=== PATIENT | female | born 1945 | race Caucasian/White ===

== ENCOUNTER 2020-05-12 15:30 | Outpatient (CLI) | payer MEDICARE, SELFPAY ==
--- NOTE | 2020-05-16 11:38 | ONC FU_ITS ---
Dr. Paulson Patient Follow-Up Note Patient: Taya Domínguez Unit #: [id number]: 1945 Dicatated By: Redd Paulson M.D.Date of Visit:May 12, 2020 Onc Med Follow-up/Prog Note Chief Complaint: Breast cancer. History of Present Illness: This is a 74 year-old woman with multifocal grade 3 infiltrating ductal carcinoma of the left breast, clinical stage IIA (T2, N0, M0), ER positive/CA negative and HER-2/quinn positive, 3+ by IHC. She had palpated a left breast mass for about one year. On 01/14/2014 further imaging demonstrated a 2.6 cm mass on ultrasound and suspicious calcification on the mammogram, corresponding to a palpable mass at 12:00 position. There were also additional suspicious calcifications at the 2 -3:00 position for which stereotactic core biopsy was recommended. No clinically suspicious lymph nodes were identified. On 01/28/2014 the ultrasound-guided biopsy of left breast 12:00 lesion and stereotactic core needle biopsy of the left breast 3-4:00 lesion revealed grade 3 infiltrating ductal carcinoma. The prognostic markers of the lesion at 12 clock were of ER 9%, CA 0%, HER-2/quinn 3+ by IHC, Ki 67 index 68%. The prognostic markers of the lesion at 3-4:00 o'clock were of ER 0%, CA 0%, HER-2/quinn 3+ by IHC. Thus, her disease was clinical stage IIA (T2, N0). The patient was evaluated by Dr. Zhao, and referred here for discussion of preoperative chemotherapy given positive HER-2/quinn status. The patient was in a good state of health, except for the diagnosis of basal cell carcinoma in the right chest wall, status post 6 weeks of topical 5-FU therapy. She was first seen by Dr. Edwards on 02/13/2014. On 02/18/2014 sentinel lymph node biopsy showed 2 benign lymph nodes. Right-sided Port-A-Cath placed. MUGA EF 66%. She received 6 cycles of neoadjuvant TCH-P regimen 03/03/2014 -06/16/2014 as per TRYPHAENA study. She had multiple significant hematological toxicities, acute dehydration, diarrhea, transaminitis requiring dose adjustments. She had a very good response to the treatment, clinically no further breast mass palpable. She was evaluated by her surgeon, and recommended bilateral mastectomies with immediate reconstruction. Adjuvant hormonal therapy with anastrozole 1 mg daily began on 07/07/2014. She was taken to OR by Dr. Zhao on 08/07/2014. She underwent left simple mastectomy and right prophylactic mastectomy with immediate reconstruction. Her surgical pathology showed complete response, without residual malignancy identified. Thus, she was ypT0. She completed 52 weeks of Herceptin treatment on 02/23/2015. She developed asymptomatic incidental atrial fibrillation, established care with Dr. Laboy, and she began on anticoagulation with apixaban. Her Port-A-Cath was removed. Follow-up echocardiogram in February 2015 showed EF 64%. She continued adjuvant hormonal therapy with anastrozole. She is seen for a followup visit. She says she has been feeling great. She has good energy and activity tolerance. ECOG score is 0. Her appetite is good. She has not had fever. She sometimes has night sweating. She does not complain of shortness of breath, cough, or chest pain. She has continued apixaban for the atrial fibrillation. She has no GI/ complaints other than occasional acid reflux. She has just occasional joint pain. She does complain that her fingers get cold, but she has no focal neurologic symptoms. She does complain that she bruises easily on the apixaban. Medications: Anastrozole 1 Tablet (of 1 mg) Oral daily, Eliquis 1 Tablet (of 5 mg) Oral b.i.d., Lisinopril 1 (20 mg) Tablet Oral daily Allergies: No Known Allergies. Vital Signs: Performed on May 12, 2020 14:29 Height - 64.00 in Weight - 128 lbs (LOW) BSA - 1.62 sq.m BMI - 21.97 Temperature - 98.2 F (LOW) Pulse - 78 /min Respiration - 18 /min BP - 150/98 mm(hg) (HIGH) O2 Sat - 97 % Pain - 0 Physical Examination: Constitutional - She looks good generally, Eyes - Sclerae nonicteric. Conjunctivae clear, ENMT - No lesions noted in the oral cavity, Hematologic/Lymphatic - No cervical or clavicular adenopathy, Respiratory - Lungs are clear with good air movement bilaterally, Cardiovascular - Heart rhythm is irregular. There is no murmur, gallop or rub noted, Breasts - There are no lesions noted in the chest wall/reconstruction bilaterally. There is no axillary adenopathy noted, Abdomen - Soft. Liver and spleen are not enlarged. There is no abdominal mass or ascites noted and there is no inguinal adenopathy, Extremities - No edema. Pedal pulses are palpable bilaterally, Neurologic - No focal neurologic deficits noted. Lab/Imaging: Test performed on May 08, 2020 08:33 Glucose 94 mg/dL BUN 15 mg/dL Creatinine 0.95 mg/dL Cr Clearance (Est) 48.44 mL/min Sodium 143 mmol/L Potassium 4.5 mmol/L Chloride 107 mmol/L CO2 28 mmol/L Calcium 10.1 mg/dL Protein, Total 7.2 g/dL Albumin 4.1 g/dL Bilirubin, Total 0.4 mg/dL Alkaline Phosphatase 88 IU/L AST (SGOT) 16 IU/L ALT (SGPT) 11 IU/L WBC 7.8 10^9/L RBC 4.86 10^12/L HGB 16.4 g/dL HCT 48.0 % MCV 98.8 fl MCH 33.7 pg MCHC 34.2 g/dL RDW 13.4 % Platelet Count 183 10^9/L MPV 10.9 fL Neutrophils (Gran) 4.78 10^9/L Lymphocytes 2.09 10^9/L Monocytes 0.62 10^9/L Eosinophils 0.24 10^9/L Basophils 0.07 10^9/L Manual Lymphocytes 27 % Manual Monocytes 8 % Manual Eosinophils 3 % Manual Basophils 1 % Problem List: 1. Multifocal grade 3 infiltrating ductal carcinoma of the left breast, stage IIA (T2, N0, M0), ER positive/CA negative and HER-2/quinn positive, 3+ by IHC. Her initial procedures included ultrasound-guided needle biopsy of 2 lesions in the left breast on 01/28/2014 followed by left axillary sentinel lymph node biopsy on 02/18/2014. 2. She was given neoadjuvant chemotherapy with 6 cycles of TCH-P, completed in May 2014. 3. She underwent left simple mastectomy and right prophylactic mastectomy with immediate reconstruction on 08/07/2014. She had complete pathologic response to neoadjuvant therapy (ypT0). 4. She completed 52 weeks of Herceptin on 03/05/2015. 5. Adjuvant hormonal therapy with anastrozole 1 mg daily began on 07/07/2014. She had normal baseline bone density by DEXA scan. 6. She has chronic atrial fibrillation, on anticoagulation with apixaban. Problems Addressed with this Encounter and Plan: 1. Multifocal grade 3 infiltrating ductal carcinoma of the left breast, stage IIA (T2, N0, M0), ER positive/CA negative and HER-2/quinn positive, 3+ by IHC. She had complete pathologic response to neoadjuvant chemotherapy with 6 cycles of TCH-P, completed in May 2014. She underwent left simple mastectomy and right prophylactic mastectomy with immediate reconstruction on 08/07/2014. Adjuvant hormonal therapy with anastrozole 1 mg daily began on 07/07/2014. She has now completed over 5 years of adjuvant hormonal therapy. She is doing well clinically with no evidence of recurrence of the breast cancer. We discussed the option of continuing hormonal therapy for 10 years versus stopping after 5, and she prefers to stop. I feel that it is acceptable with node-negative disease. She will now be followed on observation/expectant management. I can just see her again as needed. 2. She has chronic atrial fibrillation. She has no other associated cardiac disease, though she does have a significant family history for coronary artery disease. She is wondering about the possibility of stopping the apixaban. I will discuss this with Dr. Laboy for his recommendations. Signed By: Redd Paulson M.D. <<Signature on File>>
== END 2020-05-12 15:31 | disposition home or self-care (01) ==
LOC: ONCMED 05-13 10:08
PROVIDERS: Family Provider Nurse Practitioner Family; PCP Family Medicine; Visit Provider Internal Medicine Medical Oncology
DX: C50.412 Malignant neoplasm of upper-outer quadrant of left female breast (principal); Z17.0 Estrogen receptor positive status [ER+]; N39.41 Urge incontinence; I48.11 Longstanding persistent atrial fibrillation; Z79.01 Long term (current) use of anticoagulants; Z79.811 Long term (current) use of aromatase inhibitors
CPT/HCPCS: 99214

== ENCOUNTER 2021-09-02 10:13 | Oncology outpatient (recurring) (ONCR) | payer MEDICARE, SELFPAY | END 2021-09-21 23:59 | disposition home or self-care (01) | PROVIDERS: Absent Provider Internal Medicine Medical Oncology; PCP Family Medicine; Visit Provider Internal Medicine Medical Oncology | DX: Z08 Encounter for follow-up examination after completed treatment for malignant neoplasm (principal); Z85.3 Personal history of malignant neoplasm of breast; D75.1 Secondary polycythemia; I63.9 Cerebral infarction, unspecified; I48.91 Unspecified atrial fibrillation; F17.210 Nicotine dependence, cigarettes, uncomplicated; Z79.01 Long term (current) use of anticoagulants; Z79.82 Long term (current) use of aspirin; Z79.899 Other long term (current) drug therapy | CPT/HCPCS: 81270; 82668; 85025; 99204; 99999 ==

== ENCOUNTER → 2022-02-14 13:37 | Outpatient (BNVA) | payer MEDICARE, SELFPAY | PROVIDERS: PCP Family Medicine; Visit Provider Surgery | DX: C44.91 Basal cell carcinoma of skin, unspecified (principal) | CPT/HCPCS: 99203 ==

== ENCOUNTER 2022-02-22 09:47 | Day surgery (SDC) | payer MEDICARE, SELFPAY ==
[2022-02-21 14:27] VITALS: BMI 22.3
[2022-02-22] VITALS (7 sets, daily range): BP systolic 114–158; BP diastolic 62–82; PULSE 70–83; RESP 14–18; TEMP 36.2–36.6; O2SAT 95–98
[2022-02-22] MEDS: sodium chloride 0.9% 1,000 ML 30 ML IV (10:35)
--- NOTE | 2022-02-22 10:42 | P.ANESASSM_ITS ---
Pre-Anesthetic Assessment Height/Weight: Height 1.63 m Weight 58.967 kg Temp Pulse Resp BP Pulse Ox O2 Del Method 97.8 F 77 18 158/74 95 02/22/22 10:05 02/22/22 10:05 02/22/22 10:05 02/22/22 10:05 02/22/22 10:05 02/22/22 10:06 Preop Diagnosis: Chest wall basal cell carcinoma Operation Date: 02/22/22 11:35 Proposed Procedures p wide loc incision of ches wall mass 80442,R22.2(Not Applicable) - Oscar Howard MD Familial anesthetic complications: None Was Beta Joe taken within 24 hours: N/A Was Clonidine taken within 24 hours: N/A Last intake: Intake Last Liquid Date 02/21/22 Last Liquid Time 19:00 Last Solid Date 02/21/22 Last Solid Time 19:00 Social Tobacco and No alcohol Exam alert, oriented x 3, clear to auscultation bilaterally and regular rate & rhythm Airway Mallampati: Class II Dentition: false Pulmonary None reported CV/HEM Atrial Fibrillation and Hypertension Neuropsych Cerebrovascular Accident (Residual R-sided parasthesias) Anesthetic Plan ASA status: 3 Anesthesia: MAC Risk of > 500 ml blood loss (7ml/kg in children): No Other Pertinent Information breast cancer Medications/Allergies Home Medications Medication Instructions Recorded Confirmed Last Taken Type apixaban 5 mg tablet (Eliquis) 5 mg PO BID 12/02/19 02/22/22 02/20/22 History atorvastatin 80 mg tablet tab PO 09/04/21 02/18/22 02/21/22 History amlodipine 5 mg tablet 5 mg PO DAILY 02/21/22 02/22/22 02/21/22 History lisinopril 30 mg tablet mg 02/21/22 02/21/22 History Allergies Allergy/AdvReac Type Severity Reaction Status Date / Time No Known Allergies Allergy Verified 02/21/22 14:24 Current Medications Generic Name Dose Route Start Last Admin Trade Name Freq PRN Reason Stop Dose Admin Sodium Chloride 1,000 mls @ 30 mls/hr 02/22/22 10:00 02/22/22 10:35 Sodium Chloride 0.9% IV 02/23/22 09:59 30 mls/hr .Q24H TEDDY Administration PFSH Anesthesia Medical History Basal cell carcinoma of skin History of atrial fibrillation Hx of [employer] spotted fever Hypertension Malignant neoplasm of upper-outer quadrant of left female breast (12/2014) Stroke 07/2021 Seen at [facility] [place] Urge incontinence Surgical History History of lymph node biopsy (01/19/14) left axillary sentinel lymph node biopsy Hx of bilateral mastectomy (08/07/14) bilateral mastectomy with immediate reconstruction Hx of dilation and curettage Hx of tubal ligation Family History Mother Dementia Sister Hyperlipidemia CAD (coronary artery disease) Brother CAD (coronary artery disease) Father CAD (coronary artery disease) Other Stroke Denies family history of Diabetes Clotting disorder Psychiatric illness Chronic kidney disease (CKD) Suicide Anesthesia complication Bleeding disorder Lung disease Cancer Hypertension Social History Smoking and tobacco status: never smoked Alcohol intake: current Alcohol intake frequency: holidays/special occasions only Data Anesthesia Cardiac Studies: No Data to Display
--- NOTE | 2022-02-22 11:11 | W.PM.OPSUD ---
Surgery/Procedure H&P Update DATE OF PROCEDURE: February 22, 2022 DATE H&P PERFORMED: 02/14/22 H&P UPDATE INFORMATION: I have reviewed H&P completed within last 30 days, I have examined patient prior to procedure and No changes to prior documentation PREOP DIAGNOSIS: Chest wall basal cell carcinoma PRIMARY INDICATION FOR PROCEDURE: The same PLANNED PROCEDURE: Operation Date: 02/22/22 11:35 Proposed Procedures p wide loc incision of ches wall mass 60474,R22.2(Not Applicable) - Oscar Howard MD
[2022-02-22 11:15] LABS: Blood Urea Nitrogen 23 mg/dL (8-23); Calcium 10.2 mg/dL (8.5-10.5); Carbon Dioxide 25 mmol/L (22-29); Chloride 103 mmol/L (98-107); Glucose 102 mg/dL (65-115); Osmolality Calculated 294 mOsm/kg (285-295); Sodium 140 mmol/L (136-145)
[2022-02-22] MEDS: ceFAZolin 1,000 MG in sodium chloride 0.9% (plus) 50 ML 100 MG IV (11:17)
[2022-02-22 11:22] LABS: Anion Gap 16.3 (5-19); Potassium 4.3 mmol/L (3.5-5.1)
[2022-02-22] MEDS: lidocaine 1% INJ 50 mL 7 ML INJECTION (11:33)
--- NOTE | 2022-02-22 11:55 | P.OP_ITS ---
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 Timeout was done verifying the patient's name/date of /planned procedure and destination after the procedure, all were in agreement. SCDs confirmed to be functioning, preoperative antibiotics administered per protocol, and beta alisha protocol was confirmed Prep and drape of the chest area was done under the usual sterile technique Local anesthesia 1% lidocaine was infiltrated site of the incision, elliptical skin incision was done including the presternal mass mass with safety margin 5 mm at least,incision was done all the way down to the subcutaneous tissues dissection was then carried on , the mass was oriented by 3-0 nylon sutures in the form of short superior and passed to the circulating nurse for permanent pathology. Undermining dissection for bilateral flaps were created in order to close the wound without applying tension ,Hemostasis was achieved using Bovie cautery, followed by irrigation with normal saline, 2-0 Vicryl followed by 4-0 Monocryl for subcuticular closure then surgical glue and dry dressing followed by sports bra Count was completed at the end of the procedure Patient was taken to the recovery room in stable condition I was present for the whole entire procedure
--- NOTE | 2022-02-22 13:14 | ANE.PACU2 ---
Inpatient post-anesthesia follow up: Airway intact: Yes Vital signs: Temperature 97.3 F Pulse Rate 83 Respiratory Rate 16 Blood Pressure 141/82 Pulse Oximetry 98 Oxygen Delivery Me thod Room Air Oxygen Flow Rate 6 Fraction of Inspir ed Oxygen Hydration adequate: Yes Nausea and vomiting: No Pain level: 1 Mental status: Baseline
== END 2022-02-22 12:56 | disposition home or self-care (01) ==
PROVIDERS: Anesthesiology; PCP Family Medicine; Visit Provider Surgery
PROC: (CPT 11602; principal; 2022-02-22 11:25)
DX: C44.519 Basal cell carcinoma of skin of other part of trunk (principal); I48.91 Unspecified atrial fibrillation; I10 Essential (primary) hypertension; I69.951 Hemiplegia and hemiparesis following unspecified cerebrovascular disease affecting right dominant side
CPT/HCPCS: 11602; 14000; 80048; 88309; J0690; J1100; J2405; J2704; J3010; J7030

== ENCOUNTER → 2022-03-03 14:48 | Outpatient (BNVA) | payer MEDICARE, SELFPAY | PROVIDERS: PCP Family Medicine; Visit Provider Surgery | DX: Z09 Encounter for follow-up examination after completed treatment for conditions other than malignant neoplasm (principal) | CPT/HCPCS: 99024 ==

== ENCOUNTER 2022-10-08 05:51 | Outpatient (CLI) | payer MEDICARE, SELFPAY ==
--- NOTE | 2022-10-08 | PETR_ITS ---
PROCEDURE INFORMATION: Exam: PET/CT Skull Base to Mid-thigh Exam date and time: 10/08/2022 11:44 AM Age: 77 years old Clinical indication: Condition or disease; Primary cancer: Breast cancer; Follow-up oncological assessment LABS AND CLINICAL REPORTS: Glucose: 101 mg/dl Treatment strategy for malignancy (PET staging): Restaging (PS) TECHNIQUE: Imaging protocol: Following at least four-hour fasting and following the injection of radiopharmaceutical, low dose CT images were obtained. Then, PET images were obtained. Attenuation corrected images were constructed using the CT scan. Fused images of PET and CT were reviewed. The standardized uptake values (SUV) reported below are maximum values within a region of interest, expressed in gm/ml. Exam includes orbital meatal line to mid-thigh. Radiopharmaceutical: 15.34 mCi F-18 FDG (Fluorodeoxyglucose), IV. Time of imaging post radiopharmaceutical administration: 44.6 minutes. Injection site: Right antecubital vein. COMPARISON: No relevant prior studies available. No prior breast imaging studies are available. FINDINGS: Brain: Visualized brain has normal physiologic uptake. Pharynx: No abnormal uptake. Larynx: No abnormal uptake. Lungs, pleura and trachea: Calcifications in the lungs, pulmonary pedrtio and mediastinum are consistent with remote granulomatous disease. The lungs are clear. Heart: Normal physiologic uptake. No cardiomegaly or pericardial effusion. Mediastinal space: No abnormal uptake. Liver: No abnormal uptake. Gallbladder and bile ducts: No abnormal uptake. Pancreas: No abnormal uptake. Spleen: No abnormal uptake. Adrenal glands: No abnormal uptake. Kidneys and ureters: Normal physiologic uptake. Stomach and bowel: No abnormal uptake. Intraperitoneal and retroperitoneal spaces: No significant peritoneal free fluid. No free peritoneal air. Urinary bladder: Urinary bladder is normal without wall thickening, mass or stone. Reproductive: Postmenopausal uterine and ovarian atrophy is appropriate for 77 years of age. Calcified uterine fibroids measure up to 4.0 cm. Vasculature: There is severe calcific atherosclerosis of the abdominal aorta and iliac arteries. There is no aortic aneurysm. Lymph nodes: No abnormal uptake. No lymphadenopathy in the head, neck, chest, abdomen, pelvis or extremities. Bones/joints: No metabolically active areas. Severe degenerative disc narrowing with endplate sclerosis at T12-L1 and L1-L2 is not FDG avid. 30 degree dextroscoliosis between T12 and L3. Soft tissues: Status post bilateral mastectomies and breast reconstructions. [facility] SUB[facility] [id number] IMPRESSION: 1. No evidence of FDG avid malignant neoplasm. 2. Status post bilateral mastectomies and breast reconstructions. 3. No FDG avid lymph nodes.
== END 2022-10-08 05:52 | disposition home or self-care (01) ==
LOC: RAD 10-10 05:51
PROVIDERS: PCP Family Medicine; Visit Provider Family Medicine
DX: C50.112 Malignant neoplasm of central portion of left female breast (principal); Z90.13 Acquired absence of bilateral breasts and nipples; R61 Generalized hyperhidrosis; R63.4 Abnormal weight loss
CPT/HCPCS: 78815; A9552

== ENCOUNTER 2024-02-19 22:13 | Observation (INO) | payer MEDICARE, SELFPAY ==
[2024-02-19 22:33] VITALS: BP 156/75; PULSE 71; RESP 20; TEMP 36.4; O2SAT 99; BMI 22.3
--- NOTE | 2024-02-19 23:33 | PM.HP ---
Providers/Chief Complaint Admitting Physician: Francis Myers MD Primary Care Provider: Tony Stephens Chief Complaint: Previous Stroke\MRI History of Present Illness Taya Domínguez is a 78 year old female Transferred from [facility] in [facility]. Patient was seen by Dr. Jc and he had consulted with teleneurology. The patient was noted to have stroke symptoms with right arm and foot tingling and also repeating herself verbally. She was disoriented and demonstrated mild dementia which is consistent with her baseline. CT of the brain showed atrophy Dr. Jc states he got a NIH score of 0 but the neurologist got an NIH score of 1 Neurologist recommended that the patient have MRI and that apixaban be held until that could be completed. Also recommended for permissive hypertension and no tPA. CT scan was negative of the brain for bleed. Blood work normal no elevated white count. Hemoglobin was 18.3 BNP 1000 troponin 18 with normal less than 10 and D-dimer at 0.92 with normal less than 0.05 Patient was being evaluated by nurse when I arrived and she stated in a loud voice will come have a seat sorry I cannot offer you a drink. Patient was talkative but as I spoke with her it became apparent that she was not very oriented. 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 She tells me that her is a technical testing engineer who did surgery. She tells me that she 3 weeks ago had a physical so that she could play racquetball in a league. She states her 8-year-old pitbull mix dog has been having trouble with his legs which stopped working intermittently and prevent him from wanting to jovanny the ball. The story she tells seemingly out of order and context but do seem to be factual. Additionally the patient tells me that she worked at [employer] but needed help with the name of hospitals in [place]. She states that she worked there 1971 but later states that she and her moved to [place] in [facility] for 20 years where he worked as a vet starting 1967. Review of Systems Narrative: General denies fevers or chills Cardiovascular no chest pain or palpitations Respiratory no coughing or wheezing GI no nausea vomiting no dysuria hematuria Neuro she reports some tingling in her right hand and foot but not on the left side She states she is more confused than usual Medications/Allergies Home Medications Medication Instructions Recorded Confirmed Last Taken Type apixaban 5 mg tablet (Eliquis) 5 mg PO BID 12/02/19 03/05/22 02/20/22 History atorvastatin 80 mg tablet tab PO 09/04/21 03/05/22 02/21/22 History amlodipine 5 mg tablet 5 mg PO DAILY 02/21/22 03/05/22 02/21/22 History lisinopril 30 mg tablet mg 02/21/22 03/05/22 02/21/22 History Allergies Allergy/AdvReac Type Severity Reaction Status Date / Time No Known Allergies Allergy Verified 03/05/22 09:58 PFSH Acute PFSH: Medical History Basal cell carcinoma of skin History of atrial fibrillation Hx of [place] spotted fever Hypertension Malignant neoplasm of upper-outer quadrant of left female breast (12/2014) Stroke 07/2021 Seen at [facility] [place] Urge incontinence Surgical History History of lymph node biopsy (01/19/14) left axillary sentinel lymph node biopsy Hx of bilateral mastectomy (08/07/14) bilateral mastectomy with immediate reconstruction Hx of dilation and curettage Hx of tubal ligation Family History Mother Dementia Sister Hyperlipidemia CAD (coronary artery disease) Brother CAD (coronary artery disease) Father CAD (coronary artery disease) Other Stroke Denies family history of Diabetes Clotting disorder Psychiatric illness Chronic kidney disease (CKD) Suicide Anesthesia complication Bleeding disorder Lung disease Cancer Hypertension Social History Smoking and tobacco/nicotine status: never used tobacco/nicotine Alcohol intake: current Alcohol intake frequency: holidays/special occasions only Vitals/I&O/Wt Last Vital Signs Temp 97.5 F L 02/19/24 22:33 Pulse 71 02/19/24 22:33 Resp 20 H 02/19/24 22:33 BP 156/75 02/19/24 22:33 Pulse Ox 99 02/19/24 22:33 O2 Del Method Room Air 02/19/24 22:33 Weight last 48 hrs Weight 58.967 kg Physical Exam Narrative: General well-developed well-nourished female in no acute cardiopulmonary distress Neuro she is oriented to person and hospital but thought that she was in [place]. She told me the month was July and that it is Monday but was interviewed on Monday late evening. Told me the date was 2018 or 2019. After taking additional history I came back to the disorientation and she told me it was 2022 and guessed the date to be November or December then January She moves all extremities symmetrically. She reports mild numbness in the right ankle but not in the right hand. Motor strength is 5/5 bilateral biceps triceps ankle extension and flexion. Cranial nerves II through XII are grossly intact no nystagmus smile is symmetric no tongue deviation Cardiovascular regular rate and rhythm occasional irregular beat Lungs clear to auscultation bilaterally Abdomen positive bowel sounds soft nontender Calves no tenderness cords asymmetry or pretibial edema Mood and affect are bright gregarious cooperative Skin is warm and dry A&P Assessment and plan (1) Stroke: Patient is admitted to observation and will have PT OT and speech therapy evaluation. She is okayed for regular diet as she appears to be with minimal speech deficit. The patient will be on telemetry with apixaban held pending MRI of the brain. Anticipate that she will go home tomorrow with her I am told from transferring physician that the patient's dementia is baseline (2) History of atrial fibrillation: Patient was sinus rhythm occasional ectopy apixaban held for now (3) Hypertension: Will allow permissive hypertension and so her lisinopril and amlodipine are held. Atorvastatin will be continued. Blood pressure here 156/75 without intervention. She has room air saturation 99% Attestations Medical Necessity Statement*: Patient is transferred from outside hospital based on recommendation from neurology to be monitored on telemetry with apixaban held until MRI of the brain can be performed. Patient is not a candidate for tPA Time Spent in Patient Care: 75 minutes spent in evaluation coronation of care for this patient today Coding Level of Care Code 20897 Diagnoses Stroke I63.9 History of atrial fibrillation Z86.79 Hypertension I10 Time Spent (min) 75
[2024-02-19] MEDS: atorvastatin 40 mg Tablet 80 MG PO (23:48)
[2024-02-20] VITALS (10 sets, daily range): BP systolic 124–192; BP diastolic 66–84; PULSE 52–69; RESP 16–20; TEMP 36.4–36.8; O2SAT 95–99
[2024-02-20 06:49] LABS: Chol HDL Ratio 4.26 mg/dL (0.0-4.40); Cholesterol 200 mg/dL (0-200); HDL Cholesterol 47 mg/dL (60-100); LDL Cholesterol Calculated 132 mg/dL (50-129); LDL HDL Ratio 2.81 RATIO (0.00-3.22); Triglycerides 106 mg/dL (0-150)
--- NOTE | 2024-02-20 09:00 | USCV_ITS ---
Taya Domínguez Age: 78 Gender: F : 1945 Exam Date: 02/20/2024 14:49 Ordering Phys: Chalino Moeller MD Technologist: Exam Location: [facility] – [place] Indication: tia BP: 124 / 72 HR: 247 Rhythm: Sinus Technical Quality: Adequate MEASUREMENTS (Male / Female) Normal Values 2D ECHO LV Diastolic Diameter PLAX 4.0 cm 4.2 - 5.9 / 3.9 - 5.3 cm IVS Diastolic Thickness 1.3 cm 0.6 - 1.0 / 0.6 - 0.9 cm IVS Systolic Thickness 1.7 cm LVPW Diastolic Thickness 1.3 cm 0.6 - 1.0 / 0.6 - 0.9 cm LVPW Systolic Thickness 1.8 cm LVOT Diameter 2.0 cm LV Ejection Fraction 2D Teich 69.5 % LV Ejection Fraction MOD 4C 68.0 % LV Ejection Fraction MOD 2C 58.6 % LV Ejection Fraction 2C AL 60.9 % LA Diameter 4.3 cm RA Systolic Volume 4C AL 29.9 ml RA Systolic Volume 4C MOD 30.9 ml LA Sys Volume AL 123.3 cm cubed LA Sys Volume Index AL 75.4 cm cubed/m squared Aorta at Sinotubular Diameter 2.1 cm M-MODE LA Ao Ratio MM 1.8 AV Cusp Separation MM 1.7 cm DOPPLER AV Peak Velocity 151.0 cm/s LVOT Peak Velocity 34.0 cm/s AV Area Cont Eq vti 0.8 cm squared AV Area Cont Eq pk 0.7 cm squared MV Peak Velocity 99.0 cm/s MV Area PHT 2.7 cm squared Mitral E to A Ratio 4.0 TR Peak Velocity 248.0 cm/s TR Peak Gradient 24.6 mmHg TV Peak E Velocity 93.0 cm/s Right Atrial Pressure 3.0 mmHg Pulmonary Artery Systolic Pressu 27.6 mmHg PV Peak Velocity 71.0 cm/s FINDINGS Left Ventricle Mild left ventricular hypertrophy. Normal systolic function and wall thickness, with no regional wall motion abnormalities. Estimated LVEF is normal at 65%. Right Ventricle Normal right ventricular size and systolic function. Right Atrium Normal right atrial size. Left Atrium Moderately increased left atrial size. Mitral Valve Thickened mitral valve. No mitral valve stenosis. Trace mitral valve regurgitation. Aortic Valve Thickened aortic valve. No aortic valve stenosis. No aortic valve regurgitation. Tricuspid Valve Structurally normal tricuspid valve. Trace tricuspid valve regurgitation. Normal pulmonary artery pressure (29 mmHg). Pulmonic Valve Structurally normal pulmonic valve. Trace pulmonary valve regurgitation. Pericardium No pericardial effusion. Aorta Normal size aortic root and proximal ascending aorta. IVC Normal inferior vena cava. CONCLUSIONS Atrial fibrillation during the study. Mild left ventricle hypertrophy. Normal LV systolic function. Normal LVEF 65%. Moderately dilated left atrium. Trace mitral regurgitation. No significant valvular abnormality noted. Normal right heart and pulmonary pressures. Hemal Shepard MD (Electronically Signed) Final Date: 20 February 2024 16:12 S
--- NOTE | 2024-02-20 09:00 | USCV_ITS ---
Taya Domínguez Age: 78 Gender: F : 1945 Exam Date: 02/20/2024 15:05 Ordering Phys: Chalino Moeller MD Technologist: Exam Location: [place] Indication: tia Risk Factors: Previous Vascular Surgery: Right Brachial BP: / Left Brachial BP: / Right Left Velocity (cm/s) Spectral Plaque Velocity (cm/s) Spectral Plaque Syst/Diast Broadening Syst/Diast Broadening 93.20/ 15.40 Prox CCA 64.40 / 12.50 90.40/ 16.70 Mid CCA 46.70 / 12.50 60.40/ 14.00 Distal CCA 42.90 / 12.50 89.70/ 22.60 Prox ICA 80.00 / 19.30 73.20/ 18.80 Mid ICA 80.00 / 23.60 45.40/ 16.30 Distal ICA 80.00 / 17.10 74.10 ECA 78.00 1.50 ICA/CCA 1.90 Antegrade Vertebral Antegrade 59.30/ 12.50 cm/s 29.10/ 0.00 cm/s Bi Subclavian Bi 112.4 165.3 0 0 FINDINGS Comparison: none available. No significant elevation of systolic or diastolic velocities. Waveforms are normal. Moderate calcified plaque in the bifurcations. Antegrade vertebral arteries. CONCLUSIONS Bilateral ICA stenosis less than 50%. Moderate carotid atherosclerosis. Dr. Lakia Dotson DO (Electronically Signed) Final Date: 20 February 2024 16:07 S
--- NOTE | 2024-02-20 09:30 | MR_ITS ---
WS: [id number] MRI HEAD WITH CONTRAST TECHNIQUE: Sagittal T1, T2 axial, T2 axial FLAIR, axial susceptibility weighted imaging, axial diffus ion weighted images, and coronal T2 images were obtained. Pre and post-T1 axial and post T1 coronal i mages. ADC and FSPGR images. CLINICAL INFORMATION: Stroke COMPARISON: None. FINDINGS: Some images limited by patient motion. Fast imaging performed due to motion. Tiny focus of partially restricted diffusion in the RIGHT parietal lobe compatible with acute to suba cute ischemia. This measures approximately 5 mm. Additional tiny focus of partially restricted diffus ion in the LEFT posterior frontal lobe with an additional focus along the RIGHT insula. Consider embo lic etiologies. Additional suspected tiny focus along the LEFT operculum. No evidence of enhancing intracranial metastatic disease. Moderate small vessel changes with moderat e parenchymal volume loss. Small vessel changes in the nii. Normal vascular flow-voids at the skull base. No extra-axial fluid collections. Paranasal sinuses and mastoid air cells are well aerated. Normal posterior nasopharynx. Prominent perivascular spaces in the basal ganglia. Moderate symmetric atrophy temporal lobes and hippocampal formations. Chronic hemosiderin in the LEFT basal ganglia. Ch ronic lacunar infarcts in the LEFT caudate and LEFT lateral basal ganglia. MR/MR head wo/w con [id number] IMPRESSION: 1. No evidence of enhancing intracranial metastatic disease. 2. 3 or 4 tiny foci of partially restricted diffusion compatible with acute to subacute ischemia in multiple vascular territories. Consider embolic etiologie s. 3. Moderate small vessel changes with moderate parenchymal volume loss. 4. Chronic lacunar infarcts in the LEFT lateral basal ganglia with hemosiderin . 5. Small vessel changes in the nii. Notified Dr. Sunni VEE at 02/20/2024 11:13 AM.
--- NOTE | 2024-02-20 09:30 | PC.CHAP ---
Pastoral Care Encounter/Spiritual Assessment Type of Contact [] Declined community center director visit [] Patient/Family/Request visit [] Outpatient visit [] Follow-up visit [] Physician referral [] Code/Alert [x] Routine visit [] Staff referral [] Actively dying [] Patient sleeping [] Family support [] [] Out of room [] Palliative care [] [] Receiving care in room [] Pre-surgical visit [] Trauma [] Long length of stay [] ICU visit [] Other: Relational/Emotional Strength [x] Patient feels connected with others/family/visitors/staff [] Distress [] Loneliness/isolation [] Abandonment Spirituality of Patient [x] Person of Farheen [] Attends Yazdanism of their Farheen [x] Believes in Prayer [] Reads Bible or Mu-Ism materials [] There are Spiritual issues to be addressed 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 Interventions [x] Prayer [x] Active listening [] Non-anxious presence [x] Spiritual/emotional support [] Crisis/trauma care [] Spiritual counseling [] Bereavement support [] Provided bereavement packet [] Provided Bible/devotional materials [] Provided toy/stuffed animal, coloring book to patient or family member [] Provided Communion [] Anointing/[place] [] Salvation [x] Completed spiritual assessment [] Other: Impact on Illness or Injury [] Angry [] Fearful [] Anxious [] Often cries [] Exhaustion [] Unable to work [] Unable to attend religious [] Unable to walk/stand [] Unable to read [] Unable to drive [] Unable to eat/drink [] Unable to sleep [] Unable to be with family [] Patient intubated [] Other: Summary Time spent with patient 5 min
[2024-02-20 10:01] LABS: Basophils # 0.1 10^3/uL (0.0-0.1); Eosinophils # 0.2 10^3/uL (0.0-0.8); Eosinophils % 2.2 %; Hematocrit 46.3 % (36-47); Lymphocytes # 2.1 10^3/uL (0.8-4.8); Lymphocytes % 27.1 %; Mean Corpuscular HGB Conc 33.7 g/dL (30-55); Mean Corpuscular Hemoglobin 33.3 pg (27-33); Mean Corpuscular Volume 98.7 fl (85-98); Mean Platelet Volume 11.7 fL (7.4-10.4); Monocytes # 0.6 10^3/uL (0.2-0.9); Monocytes % 7.6 %; Neutrophils # 4.75 10^3/uL (1.8-7.7); Neutrophils % 61.8 %; Nucleated Red Blood Cells % 0 %; Platelet Count 195 10^3/cmm (157-399); Red Blood Count 4.69 10^6/uL (3.85-5.65); Red Cell Distribution Width 13.8 % (12.1-15.1); White Blood Count 7.68 10^3/uL (3.29-11.43)
[2024-02-20 10:37] LABS: Blood Urea Nitrogen 24 mg/dL (8-23); Calcium 9.1 mg/dL (8.5-10.5); Carbon Dioxide 24 mmol/L (22-29); Chloride 107 mmol/L (98-107); Creatinine Clr Calc Pharmacy 40.8805; Glucose 96 mg/dL (65-115); Osmolality Calculated 304 mOsm/kg (285-295); Sodium 145 mmol/L (136-145); Thyroid Stimulating Hormone 1.98 uIU/mL (0.27-4.20)
[2024-02-20] MEDS: gadobenate dimeglumine 20 mL vial 12 ML IV (10:45)
--- NOTE | 2024-02-20 15:07 | P.PN_ITS ---
Subjective 2 Subjective: Patient was seen this morning, she is alert oriented x 3, following all commands no focal neurologic deficits, she does report that she had some right facial numbness, right upper extremity numbness which was transient, no word finding difficulty, no slurring of her words, no trouble walking she tells me, she tells me that she is compliant with her Eliquis therapy, does report a family history of CAD in her father, Vitals/I&O/Wt Last Vital Signs Temp 98.2 F 02/20/24 11:51 Pulse 65 02/20/24 11:51 Resp 18 02/20/24 11:51 BP 178/72 02/20/24 11:51 Pulse Ox 99 02/20/24 11:51 O2 Del Method Room Air 02/20/24 11:51 02/20/24 02/20/24 02/20/24 06:59 14:59 22:59 Intake Total 420 / 420 Balance 420 / 420 Weight last 48 hrs Weight 45.677 kg Weight 58.967 kg Physical Exam 2 Const: COMMON NORMALS: no acute distress ORIENTATION/CONSCIOUSNESS: Yes awake and Yes oriented to person; not oriented to place and not oriented to time Resp: COMMON NORMALS: normal respiratory effort, No retractions, No use of accessory muscles and clear to auscultation bilaterally AUSCULTATION: clear to auscultation bilaterally Cardio: COMMON NORMALS: regular rate, regular rhythm, S1 normal heart sound present and S2 normal heart sound present RATE: regular rate RHYTHM: r egular rhythm HEART SOUNDS: S1 normal heart sound present and S2 normal heart sound present GI: COMMON NORMALS: Normal to inspection, nondistended, normoactive bowel sounds present and non-tender Extremity: COMMON NORMALS: no calf tenderness and no pedal edema Neuro: COMMON NORMALS: CN's II-XII intact bilaterally, moves all extremities and no focal motor deficits SENSORIUM/ORIENTATION: Yes oriented to person, No oriented to place and No oriented to time Psych: COMMON NORMALS: mental status grossly normal Data 02/20/24 04:59 02/20/24 04:59 A&P Assessment and plan (1) Stroke: (2) History of atrial fibrillation: (3) Hypertension: Plan Acute CVA ? Concerns for embolic CVA ? NIH stroke scale 0/1 at outside facility ? Currently NIH stroke scale 0 ? Out of the window for tPA, and not a candidate given her Eliquis therapy ? Brain MRI MR/MR head wo/w con [id number] IMPRESSION: 1. No evidence of enhancing intracranial metastatic disease. 2. 3 or 4 tiny foci of partially restricted diffusion compatible with acute to subacute ischemia in multiple vascular territories. Consider embolic etiologies. 3. Moderate small vessel changes with moderate parenchymal volume loss. 4. Chronic lacunar infarcts in the LEFT lateral basal ganglia with hemosiderin. 5. Small vessel changes in the nii. ? Spoke to neurology, recommend outpatient follow-up with neurology, event monitor, resume anticoagulant therapy in 48 hours -I reviewed patient's records she has had acute CVA 08/11/2021, MRI showing restricted diffusion in the dorsal, medial left nii, this stroke happened while she was also while she was on Eliquis therapy, also had a cardiac echo which was negative for [id number] shunting ? Patient follows up with Dr. Paulson, there was concerns for polycythemia, she has had a hypercoagulable workup including factor V Leiden, JAK2, anticardiolipin antibody which was negative -Does have a history of dementia, on examination is alert to person, to place, not to time she understands that she is forgetful, no troubles with word recall, no slurring of her words, no significant receptive aphasia, does have slowing of word retrieval Plan ? Monitor closely ? Neurochecks ? Aspiration precautions ? N/A stroke scale ? PT OT ? Speech therapy eval ? Continue statin ? Carotid ultrasound -Cardiac echo -Permissive hypertension ? Resume Eliquis therapy 48 hours after stroke # SCDs for DVT prophylaxis Spoke to patient, spoke to nursing staff, spoke to neurology, looked at prior records Attestations 2 Medical Necessity Statement*: Patient requires hospitalization for acute CVA, embolic CVA inpatient, greater than 2 midnights Diagnoses Stroke I63.9 History of atrial fibrillation Z86.79 Hypertension I10
[2024-02-20] MEDS: aspirin 81 mg EC Tablet PO (15:38)
--- NOTE | 2024-02-20 20:24 | PC.NURSE ---
Patient states it is 2022 and that it is February. Patient knows she is in the hospital, but doesn't know which hospital. Patient is able to tell me the year she was born, but is not able to tell me her age.
[2024-02-20] MEDS: atorvastatin 40 mg Tablet 80 MG PO (20:33)
[2024-02-21] VITALS: BP 130/59; PULSE 64; RESP 17; TEMP 36.3; O2SAT 97
[2024-02-21 04:00] VITALS: BP 174/75; PULSE 64; RESP 16; TEMP 36.4; O2SAT 97
[2024-02-21 07:59] VITALS: BP 180/78; PULSE 64; RESP 14; TEMP 36.4; O2SAT 95
[2024-02-21] MEDS: aspirin 81 mg EC Tablet PO (08:33)
--- NOTE | 2024-02-21 11:20 | P.DS_ITS ---
Discharge Providers Date of Admission: 02/19/24 22:13 Date of Discharge: February 21, 2024 Attending Provider at Admission: Francis Myers MD Attending Provider at Discharge: Chalino Moeller MD Primary Care Provider: Tony Stephens Diagnoses at Discharge Discharge Diagnosis (1) Stroke: Status: Acute Permanent problem details: 07/2021 Seen at [facility] (2) History of atrial fibrillation: Status: Acute (3) Hypertension: Status: Acute Reason for Visit Reason for Visit: Previous Stroke\MRI Hospital Course Hospital Course This is a 78-year-old female with a past medical history of atrial fibrillation on Eliquis therapy, prior history of CVA, history of dementia, who presents to [facility] due to disorientation, right-sided facial numbness right upper and lower extremity numbness, she was seen at [facility] concerns for acute CVA, ER follow-up provider spoke to teleneurology, NIH stroke scale was 0-1, CT head was negative for acute bleed, patient was on Eliquis, was not a candidate for tPA, patient was transferred to [facility] for further stroke evaluation Patient was admitted to [facility] for acute CVA, she is alert oriented x to person, to place, not to time she follows all commands, no focal neurologic deficits, she does have right facial numbness, right upper and lower extremity numbness which is transient, no word finding difficulty no slurring words, she tells me that she is compliant with her Eliquis therapy Acute CVA ? Concerns for embolic CVA ? NIH stroke scale 0/1 at outside facility ? Currently NIH stroke scale 0 ? Out of the window for tPA, and not a candidate given her Eliquis therapy ? Brain MRI MR/MR head wo/w con [id number] IMPRESSION: 1. No evidence of enhancing intracranial metastatic disease. 2. 3 or 4 tiny foci of partially restricted diffusion compatible with acute to subacute ischemia in multiple vascular territories. Consider embolic etiologies. 3. Moderate small vessel changes with moderate parenchymal volume loss. 4. Chronic lacunar infarcts in the LEFT lateral basal ganglia with hemosiderin. 5. Small vessel changes in the nii. ? Spoke to neurology, recommend outpatient follow-up with neurology, event monitor, resume anticoagulant therapy in 48 hours -I reviewed patient's records she has had acute CVA 08/11/2021, MRI showing restricted diffusion in the dorsal, medial left nii, this stroke happened while she was also while she was on Eliquis therapy, also had a cardiac echo which was negative for [id number] shunting ? Patient follows up with Dr. Paulson, there was concerns for polycythemia, she has had a hypercoagulable workup including factor V Leiden, JAK2, anticardiolipin antibody which was negative -Does have a history of dementia, on examination is alert to person, to place, not to time she understands that she is forgetful, no troubles with word recall, no slurring of her words, no significant receptive aphasia, does have slowing of word retrieval -The question is this just a failure of anticoagulation or an issue with compliance I spoke to patient's , as patient has dementia, he is tells me that he arranges all her medications and takes the medication as prescribed -I have discontinued Eliquis 5 mg twice daily I have discontinued this, and I discussed this with patient and her , and patient's neighbor who is a nurse -Will have her take Xarelto 20 mg at bedtime, as there is at ease of administ ration it is once daily, -I discussed the risk and benefits of adding aspirin to her regimen as above, discussed risk and benefits, shared decision making, patient and voiced understanding, all questions answered, agreed to proceed, she was given aspirin as inpatient tolerated well -Discharged on statin therapy -For her atrial fibrillation, during her echocardiogram she had atrial fibrilla tion event, but during my multiple evaluations she has remained in sinus rhythm, we will discharge her on metoprolol 25 mg p.o. daily starting tomorrow -Start Norvasc 10 mg daily starting February 23, 2024 ? Start lisinopril 10 mg twice daily starting February 23 ? On discharge I have gone over patient's discharge instructions with patient's in detail ? She is to discard all her home medications as I am worried that she might accidentally take her Eliquis in addition to Xarelto ? As adamant with the to completely discard old their home medications, and start all the medications that I have given to them here in the hospital and sent to [facility] [place] pharmacy ? Follow-up with neurology in 2 weeks next ?follow-up with cardiology in 1 to 2 weeks next ?event monitor ordered In terms of patient's dementia, she does have moderate dementia, she does not know the date at times, she can carry out full conversations, she can follow all commands but does have short-term memory loss, she really wants to be discharged home, does not want to go to a long-term facility, although I would strongly recommend this. Nonetheless patient should follow-up with primary care, follow-up with specialist. If patient's dementia does progress, I think she would better be served at a long-term facility. Her who is a project management engineer does take care of her, helps her with activities of daily living, but he is also frail, Physical Exam Const: COMMON NORMALS: no acute distress and patient oriented x3 ORIENTATION/CONSCIOUSNESS: Yes awake, Yes oriented to person and Yes oriented to place; not oriented to time Resp: COMMON NORMALS: normal respiratory effort, No retractions, No use of accessory muscles and clear to auscultation bilaterally AUSCULTATION: clear to auscultation bilaterally Cardio: COMMON NORMALS: regular rate, regular rhythm, S1 normal heart sound present and S2 normal heart sound present RATE: regular rate RHYTHM: regular rhythm HEART SOUNDS: S1 normal heart sound present and S2 normal heart sound present GI: COMMON NORMALS: Normal to inspection, nondistended, normoactive bowel sounds present and non-tender Extremity: COMMON NORMALS: no pedal edema Neuro: COMMON NORMALS: patient oriented x3, CN's II-XII intact bilaterally, moves all extremities and no focal motor deficits SENSORIUM/ORIENTATION: Yes oriented to person, Yes oriented to place and No oriented to time Discharge Data Studies Completed and Pending Completed Studies During Hospitalization Category Date Time Status MR head wo/w con [id number] Urgent MRI 02/20/24 09:30 Completed CV carotid duplex BI* [id number] Routine Ultrasound 02/20/24 09:00 Completed CV. echo complete* [id number] Routine Ultrasound 02/20/24 09:00 Completed Pending at discharge Category Date Time Status Lipoprotein (a) Routine Lab 02/20/24 04:59 Received Radiology Impressions Head MRI 02/20/24 09:30 IMPRESSION: 1. No evidence of enhancing intracranial metastatic disease. 2. 3 or 4 tiny foci of partially restricted diffusion compatible with acute to subacute ischemia in multiple vascular territories. Consider embolic etiologies. 3. Moderate small vessel changes with moderate parenchymal volume loss. 4. Chronic lacunar infarcts in the LEFT lateral basal ganglia with hemosiderin. 5. Small vessel changes in the nii. Notified Dr. Sunni VEE at 02/20/2024 11:13 AM. Laboratory Results WBC 7.68 10^3/uL (3.29-11.43) 02/20/24 04:59 RBC 4.69 10^6/uL (3.85-5.65) 02/20/24 04:59 Hgb 15.60 g/dL (11.27-16.99) 02/20/24 04:59 Hct 46.3 % (36-47) 02/20/24 04:59 MCV 98.7 fl (85-98) H 02/20/24 04:59 MCH 33.3 pg (27-33) H 02/20/24 04:59 MCHC 33.7 g/dL (30-55) 02/20/24 04:59 RDW 13.8 % (12.1-15.1) 02/20/24 04:59 Plt Count 195 10^3/cmm (157-399) 02/20/24 04:59 MPV 11.7 fL (7.4-10.4) H 02/20/24 04:59 Neut % (Auto) 61.8 % 02/20/24 04:59 Lymph % (Auto) 27.1 % 02/20/24 04:59 [place] % (Auto) 7.6 % 02/20/24 04:59 Eos % (Auto) 2.2 % 02/20/24 04:59 Baso % (Auto) 1.0 % 02/20/24 04:59 Neut # (Auto) 4.75 10^3/uL (1.8-7.7) 02/20/24 04:59 Lymph # (Auto) 2.1 10^3/uL (0.8-4.8) 02/20/24 04:59 [place] # (Auto) 0.6 10^3/uL (0.2-0.9) 02/20/24 04:59 Eos # (Auto) 0.2 10^3/uL (0.0-0.8) 02/20/24 04:59 Baso # (Auto) 0.1 10^3/uL (0.0-0.1) 02/20/24 04:59 Nucleated RBC % (auto) 0 % 02/20/24 04:59 Nucleated RBCs # 0.0 /100WBC 02/20/24 04:59 Sodium 145 mmol/L (136-145) 02/20/24 04:59 Potassium 4.0 mmol/L (3.5-5.1) 02/20/24 04:59 Chloride 107 mmol/L (98-107) 02/20/24 04:59 Carbon Dioxide 24 mmol/L (22-29) 02/20/24 04:59 Anion Gap 18.0 (5-19) 02/20/24 04:59 BUN 24 mg/dL (8-23) H 02/20/24 04:59 Creatinine 0.9 mg/dL (0.5-0.9) 02/20/24 04:59 GFR Calculation Not Reportable 02/20/24 04:59 Glucose 96 mg/dL (65-115) 02/20/24 04:59 Calculated Osmolality 304 mOsm/kg (285-295) H 02/20/24 04:59 Calcium 9.1 mg/dL (8.5-10.5) 02/20/24 04:59 C-React Prot High Sens 0.680 mg/dL (0.0-0.3) H 02/20/24 04:59 Triglycerides 106 mg/dL (0-150) 02/20/24 04:59 Cholesterol 200 mg/dL (0-200) 02/20/24 04:59 LDL Cholesterol, Calc 132 mg/dL (50-129) H 02/20/24 04:59 HDL Cholesterol 47 mg/dL (60-100) L 02/20/24 04:59 LDL/HDL Ratio 2.81 RATIO (0.00-3.22) 02/20/24 04:59 Cholesterol/HDL Ratio 4.26 mg/dL (0.0-4.40) 02/20/24 04:59 TSH 1.98 uIU/mL (0.27-4.20) 02/20/24 04:59 Vitals Last Vital Signs Temp 97.6 F 02/21/24 07:59 Pulse 64 02/21/24 07:59 Resp 14 02/21/24 07:59 BP 180/78 02/21/24 07:59 Pulse Ox 95 02/21/24 07:59 O2 Del Method Room Air 02/21/24 07:59 Discharge Plan Discharge Patient Disposition: Home Condition: Stable Prescriptions: New atorvastatin 40 mg Tablet 80 mg PO BEDTIME 30 Days Qty: 30 0RF aspirin 81 mg Tablet,Delayed Release (Dr/Ec) 81 mg PO DAILY 30 Days Qty: 30 0RF Xarelto 20 mg tablet 20 mg PO QPM 30 Days Qty: 30 0RF Rx Instructions: sart tonight at 9pm, must administer with evening (at 9pm) meal metoprolol succinate [Toprol XL] 25 mg tablet extended release 24 hr 25 mg PO DAILY 30 Days Qty: 30 0RF Rx Instructions: start 02/22/2024 at 8 am amlodipine 5 mg tablet 5 mg PO DAILY 30 Days Qty: 30 0RF Rx Instructions: start february 23 2024 lisinopril 10 mg tablet 10 mg PO BID 30 Days Qty: 60 0RF Rx Instructions: start february 24 2024 omeprazole 20 mg capsule,delayed release(DR/EC) 20 mg PO DAILY 30 Days Qty: 30 0RF Discontinued Eliquis 5 mg tablet 5 mg PO BID Hold Instructions: Resume on 02/24/22. omeprazole 20 mg capsule,delayed release(DR/EC) 20 mg PO DAILY lisinopril 30 mg tablet 30 mg PO DAILY amlodipine 5 mg tablet 5 mg PO DAILY Discharge Orders: Discharge Order (Routine); Ordered 02/21/24 Ordered By: Chalino Moeller Other Ambulatory Orders: MCT/Event Monitor 30 Days (Routine) Timeframe: 1 Day Facility: [facility] - Location: Radiology Ordered By: Chalino Moeller Referrals: Jessenia Casas MD [Physician] - 2 weeks Kathay Key MD [Physician] - 2 weeks Tony Stephens [Primary Care Provider] - 02/22/24 9:20 am Discharge Diet: Cardiac Discharge Activity: Resume usual activity Patient Instructions: Metoprolol (By mouth), Lisinopril (By mouth), Aspirin (By mouth), Amlodipine (By mouth), Atorvastatin (By mouth), Rivaroxaban (By mouth) (Xarelto, Xarelto Starter Pack), Stroke (DC), Opioid Safety, Stroke Stoplight Activity Restrictions/Additional Instructions: - Please start Xarelto 20 mg at 9 PM tonight -If you develop any bloody or black stools or have a significant fall please immediately come to the emergency room or call 911 -Please stop taking Eliquis -Please take aspirin, statin as prescribed -Start taking metoprolol 25 mg daily starting tomorrow 02/22/2024 -Start taking Norvasc 5 mg daily starting February 23, 2024 -Start taking lisinopril 10 mg twice daily starting February 24, 2024 -If you feel lightheaded or dizzy please go to the emergency room -If you have any chest pain or palpitations or lightheadedness please go to the emergency room neck -if you develop any strokelike symptoms immediately call [phone] -Do not take any of your medications at home, I have sent all new scripts to [facility] pharmacy which she will pickling operator please discard all your medications at home Discharge Attestations Time Spent in Discharge Care*: greater than 30 min Quality Metrics Clinical Quality Measures [ Cerebrovascular Accident { Contraindication to Antithrombotic: None; antithro mbotic prescribed; Contraindication to Anticoagulation: None; anticoagulation prescribed; Contraindication to Statin: None; Statin prescribed;}] Coding Level of Care Code 46516 Total time (in minutes) for Discharge: 45 Diagnoses Stroke I63.9 History of atrial fibrillation Z86.79 Hypertension I10
--- NOTE | 2024-02-21 12:34 | PC.NURSE ---
Discharge instructions given to pt and her and gone over in detail. verbalizes understanding. Important aspects of discharge instructions highlighted. No questions or concerns voiced at this time. To private vehicle with all belongings via wheelchair.
[2024-02-21 12:36] VITALS: BP 180/78; PULSE 64; RESP 14; TEMP 36.4; O2SAT 95
[2024-02-24 15:19] LABS: Lipoprotein (a) 13 nmol/L (<75)
== END 2024-02-21 12:37 | disposition home or self-care (01) ==
PROVIDERS: Admitting Provider Internal Medicine; PCP Family Medicine; Visit Provider Family Medicine
DX: I63.9 Cerebral infarction, unspecified (principal); Z86.79 Personal history of other diseases of the circulatory system; I10 Essential (primary) hypertension; I48.91 Unspecified atrial fibrillation; Z86.73 Personal history of transient ischemic attack (TIA), and cerebral infarction without residual deficits; R29.701 NIHSS score 1; I65.23 Occlusion and stenosis of bilateral carotid arteries
CPT/HCPCS: 36415; 70553; 80048; 80061; 83695; 84443; 85025; 86141; 92523; 92610; 93306; 93880; 97110; 97161; 97165; G0378; G0379

== ENCOUNTER → 2024-12-17 12:45 | Outpatient (BNVA) | payer MEDICARE, SELFPAY | PROVIDERS: PCP Family Medicine; Visit Provider Internal Medicine Cardiovascular Disease | DX: I48.19 Other persistent atrial fibrillation (principal); Z79.01 Long term (current) use of anticoagulants; Z79.82 Long term (current) use of aspirin; I10 Essential (primary) hypertension; F17.210 Nicotine dependence, cigarettes, uncomplicated; Z86.73 Personal history of transient ischemic attack (TIA), and cerebral infarction without residual deficits; R07.9 Chest pain, unspecified | CPT/HCPCS: 93005; 99204 ==

== ENCOUNTER → 2025-02-19 13:57 | Outpatient (BNVA) | payer MEDICARE, SELFPAY | PROVIDERS: PCP Family Medicine; Visit Provider Internal Medicine Cardiovascular Disease | DX: I10 Essential (primary) hypertension (principal); I48.19 Other persistent atrial fibrillation; Z86.73 Personal history of transient ischemic attack (TIA), and cerebral infarction without residual deficits; F17.210 Nicotine dependence, cigarettes, uncomplicated; Z79.01 Long term (current) use of anticoagulants | CPT/HCPCS: 99214 ==